=== PATIENT | male | born 1985 | race Caucasian/White ===

== ENCOUNTER 2024-02-16 11:25 | Emergency (ER) | payer MEDICAID ==
[~2024-02-16] VITALS: Ht 172.7 cm; Wt 72.0 kg
[2024-02-16 11:43] VITALS: O2SAT 100
[2024-02-16 12:27] VITALS: BP 130/77; PULSE 90; RESP 16; TEMP 36.83628; O2SAT 100
== END 2024-02-16 12:27 | disposition home or self-care (01) ==
LOC: ER 11:25
DX: G51.0 Bell's palsy (principal)
CPT/HCPCS: 99281